=== PATIENT | male | born 1955 | race Caucasian/White ===

== ENCOUNTER 2017-01-27 06:48 | Day surgery (SDC) | payer MEDICARE, OTHER ==
[2017-01-27] MEDS ORDERED: Lactated Ringers 1,000 ML IV SCH (07:30)
[2017-01-27] MEDS ORDERED: Propofol 200 MG/20 ML SDV ONE ×2 (08:12→08:40)
[2017-01-27] MEDS ORDERED: fentaNYL 100 MCG/2 ML SDV ONE (08:12)
[2017-01-27] MEDS ORDERED: Midazolam 1 MG/ML 2 ML SDV ONE (08:12)
[2017-01-27 09:32] VITALS: BP 113/62
--- NOTE | 2017-01-27 11:32 | OR ---
DATE OF PROCEDURE: 01/27/2017 PREOPERATIVE DIAGNOSES: History of adenomatous colon polyps. POSTOPERATIVE DIAGNOSIS: Diverticulosis; three small colon polyps, sent to the laboratory as two specimens. PROCEDURE PERFORMED: Colonoscopy to the cecum with biopsy resection of polyp at 70 cm from anal verge and two polyps in the rectum. ANESTHESIA: IV anesthesia with monitored anesthesia care. INDICATION: This 61-year-old white male is referred for a colonoscopy because of a history of adenomatous colon polyps. His last colonoscopic exam was done he says more than five years ago. I counseled him for the procedure including risks and alternatives, and he gave his informed consent to proceed. DESCRIPTION OF PROCEDURE: The patient was placed in the left lateral decubitus position. IV anesthesia was administered by the Anesthesia Service. Time-out was held. A rectal exam was performed, which was unremarkable. The flexible video Olympus colonoscope was introduced through his anus, up his rectum, and out his colon all way to the cecum. En route, we saw multiple left-sided diverticula. There was no bleeding or inflammation associated with any of them. Once the cecum was reached, the scope was slowly withdrawn examining the mucosa throughout. We encountered a small polyp 70 cm from the anal verge which was removed with a couple of bites of the biopsy forceps. The scope was withdrawn further with no new additional lesions noted until we reached the rectum. Here , we saw two small polyps which were removed with the biopsy forceps and sent to the laboratory as one specimen. The scope was retroflexed in the rectum with the most distal rectum appearing unremarkable. The scope was straightened and removed. He tolerated the procedure well. Nagi Ricardo MD /[id number]
== END 2017-01-27 09:50 | disposition home or self-care (01) ==
LOC: JP.SDS 06:48
PROVIDERS: ATTEND Surgery
DX: Z12.11 Encounter for screening for malignant neoplasm of colon (principal); D12.6 Benign neoplasm of colon, unspecified; K62.1 Rectal polyp; Z86.010 Personal history of colon polyps; K57.30 Diverticulosis of large intestine without perforation or abscess without bleeding; G47.33 Obstructive sleep apnea (adult) (pediatric); Z88.8 Allergy status to other drugs, medicaments and biological substances; E11.9 Type 2 diabetes mellitus without complications
CPT/HCPCS: 45380; 88305; J2250; J2704; J3010; J7120

== ENCOUNTER 2018-04-25 13:09 | Emergency (ER) | payer MEDICARE, OTHER ==
[2018-04-25] MEDS ORDERED: Lidocaine 2% 20 ML MDV SUBCUT ONE (13:28)
[2018-04-25] MEDS ORDERED: Diphtheria,Pertussis(Acell),Tetanus Vaccine 0.5 ML SDV IM ONE (13:28)
--- NOTE | 2018-04-25 13:35 | EDM.PDOC ---
ED HPI GENERAL MEDICAL PROBLEM - General Chief Complaint: Laceration Stated Complaint: CUT ON END OF FINGER Time Seen by Provider: 04/25/18 13:25 Source of Information: Reports: Patient History Limitations: Reports: No Limitations - History of Present Illness INITIAL COMMENTS - FREE TEXT/NARRATIVE: 62 yo male was practicing with a cross bow and the string cut across the dorsal , distal L thumb. Here for eval and repair. Uncertain about tetanus status. 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: Other (see below) (none) Left Hand Pain Score (Numeric/FACES): 6 - Related Data Allergies Allergy/AdvReac Type Severity Reaction Status Date / Time cortisone Allergy Other Verified 01/27/17 07:20 smallpox vaccine,live Allergy Vomiting Verified 01/28/17 14:26 Home Meds: Home Meds Lisinopril [Prinivil] 20 mg PO DAILY 07/31/13 [History] Naproxen 500 mg PO BID 07/31/13 [History] Cholecalciferol (Vitamin D3) [Vitamin D3] 1,000 unit PO DAILY 01/22/17 [History] Clotrimazole [Lotrimin AF 1% Crm] 1 applic TOP ASDIRECTED 01/22/17 [History] Hydrochlorothiazide [Microzide] 12.5 mg PO DAILY 01/22/17 [History] Levothyroxine 75 mcg PO ACBREAKFAST 01/22/17 [History] Multivitamin with Minerals [Multiple Vitamin] 1 tab PO DAILY 01/22/17 [History] Oxymetazoline [Nasal Decongestant] 1 spray KJ DAILY 01/22/17 [History] Triamcinolone Acetonide [Nasacort AQ Keyes] 2 spray KJ DAILY 01/22/17 [History] amLODIPine [Norvasc] 5 mg PO DAILY 01/22/17 [History] traMADol [Ultram] 50 mg PO Q6H PRN 01/22/17 [History] Past Medical History HEENT History: Reports: Allergic Rhinitis Respiratory History: Reports: Sleep Apnea Musculoskeletal History: Reports: Arthritis, Back Pain, Chronic - Past Surgical History HEENT Surgical History: Reports: None Social & Family History - Caffeine Use Caffeine Use: Reports: Soda ED ROS GENERAL - Review of Systems Review Of Systems: See Below Constitutional: Reports: No Symptoms HEENT: Reports: No Symptoms Respiratory: Reports: No Symptoms Cardiovascular: Reports: No Symptoms Endocrine: Reports: No Symptoms GI/Abdominal: Reports: No Symptoms : Reports: No Symptoms Musculoskeletal: Reports: No Symptoms Skin: Reports: Wound (L thumb) Neurological: Reports: No Symptoms ED EXAM, SKIN/RASH Exam: See Below Exam Limited By: No Limitations General Appearance: Alert, WD/WN, No Apparent Distress, Obese Extremities: Normal Inspection, Normal Range of Motion Neurological: Alert, Oriented, CN II-XII Intact, Normal Cognition, No Motor/ Sensory Deficits Psychiatric: Normal Affect, Normal Mood Skin: Warm, Dry, Normal Color, No Rash, Wound/Incision (distal, dorsal thumb laceration) Location, Skin: Upper Extremity, Left Characteristics: Linear Associated features: Tenderness ED SKIN PROCEDURES - Laceration/Wound Repair Left Hand Lac/Wound length In cm: 1.7 Appearance: Subcutaneous, Linear, Clean Distal NVT: Neuro & Vascular Intact Anesthetic Type: Digital Local Anesthesia - Lidocaine (Xylocaine): 2% Plain Local Anesthetic Volume: Other (8 ml) Skin Prep: Isopropyl Alcohol (Alcohol) Exploration/Debridement/Repair: Wound Explored, Minimal Debridement Closed with: Sutures Suture Size: other (5-0 Ethilon) # of Sutures: 3 Suture Type: Nylon, Interrupted, Simple Drain Placement: No Sterile Dressing Applied: Nurse Tetanus Status Addressed: Yes Complications: No Course - Vital Signs Last Recorded V/S: Last Vital Signs Temp 35.7 C 04/25/18 13:30 Pulse 82 04/25/18 13:30 Resp 18 04/25/18 13:30 BP 128/65 04/25/18 13:30 Pulse Ox 95 04/25/18 13:30 - Orders/Labs/Meds Orders: Active Orders 24 hr Category Date Time Status Vaccines to be Administered [RC] PER UNIT ROUTINE Care 04/25/18 13:28 Active Fingers Thumb Lt FA [CR] Stat Exams 04/25/18 13:30 Ordered Meds: Medications Discontinued Medications Generic Name Dose Route Start Last Admin Trade Name Freq PRN Reason Stop Dose Admin Diphtheria/Tetanus/Acell Pertussis 0.5 ml 04/25/18 13:28 04/25/18 13:38 Adacel IM 04/25/18 13:29 0.5 ml .ONCE ONE Administration Lidocaine HCl 10 ml 04/25/18 13:28 04/25/18 13:37 Xylocaine 2% SUBCUT 04/25/18 13:29 10 ml ONETIME ONE Administration - Radiology Interpretation Free Text/Narrative:: L thumb X-ray-tuft fx Departure - Departure Time of Disposition: 14:20 Disposition: Home, Self-Care 01 Condition: Good Clinical Impression: Open fracture of tuft of distal phalanx of left thumb - Discharge Information *PRESCRIPTION DRUG MONITORING PROGRAM REVIEWED*: No *COPY OF PRESCRIPTION DRUG MONITORING REPORT IN PATIENT SANTY: No Instructions: Laceration Care, Adult, [id number] Referrals: Boby Nichols MD [Primary Care Provider] - Forms: ED Department Discharge Additional Instructions: Clean wound twice daily with 1/2 water and 1/2 peroxide. Dry. Apply Bacitracin ointment and a new dressing. Take cephalexin as directed until gone. Take Fountain as needed for pain not relieved with ibuprofen and acetaminophen alone. Wound check in the clinic in 2-3 days. Stitches out in 10days. Keep wound clean and elevated. - My Orders Last 24 Hours: My Active Orders 04/25/18 13:28 Vaccines to be Administered [RC] PER UNIT ROUTINE 04/25/18 13:30 Fingers Thumb Lt FA [CR] Stat - Assessment/Plan Last 24 Hours: My Active Orders 04/25/18 13:28 Vaccines to be Administered [RC] PER UNIT ROUTINE 04/25/18 13:30 Fingers Thumb Lt FA [CR] Stat
[2018-04-25 13:41] VITALS: BP 128/65
[2018-04-25] MEDS ORDERED: Cephalexin 250 MG Cap PO ONE (13:53)
--- NOTE | 2018-04-25 14:04 | CR ---
Fingers Thumb Lt FA CLINICAL HISTORY: Laceration FINDINGS: There is soft tissue deformity at the tip of the thumb. Patient is a tuft fracture IMPRESSION: Soft tissue laceration with tuft fracture of the distal phalanx
[2018-04-25] MEDS ORDERED: Bacitracin Oint 1 GM U/D Packet TOP ONE (14:10)
== END 2018-04-25 14:32 | disposition home or self-care (01) ==
LOC: JP.ED 13:09
DX: S62.522B Displaced fracture of distal phalanx of left thumb, initial encounter for open fracture (principal); S61.012A Laceration without foreign body of left thumb without damage to nail, initial encounter; Z88.8 Allergy status to other drugs, medicaments and biological substances; Z88.7 Allergy status to serum and vaccine; Z79.899 Other long term (current) drug therapy; Z23 Encounter for immunization; W22.8XXA Striking against or struck by other objects, initial encounter
CPT/HCPCS: 12001; 73140; 90471; 90715; 99283; A9270

== ENCOUNTER 2019-06-12 07:13 | Day surgery (SDC) | payer OTHER, MEDICARE ==
[~2019-06-12 07:13] MED LIST: Povidone-Iodine 10% Soln 118.25 ML Bottle ONE
[2019-06-12] MEDS ORDERED: ceFAZolin 2 GM in Premix Bag 1 BAG IV ONE (08:00)
[2019-06-12] MEDS ORDERED: Lactated Ringers 1,000 ML IV SCH (08:00)
[2019-06-12] MEDS: Nozin Nasal Sanitizer NASBOTH SCH ×2 (08:14→21:48)
[2019-06-12] MEDS ORDERED: fentaNYL 100 MCG/2 ML SDV ONE (09:53)
[2019-06-12] MEDS ORDERED: Propofol 200 MG/20 ML SDV ONE ×4 (09:54→10:58)
[2019-06-12] MEDS ORDERED: Midazolam 1 MG/ML 2 ML SDV ONE ×2 (09:54→10:39)
[2019-06-12] MEDS ORDERED: Lactated Ringers 1,000 ML ONE (11:03)
[2019-06-12] MEDS ORDERED: Acetaminophen/HYDROcodone 325-5 MG Tab PO PRN (11:17)
[2019-06-12] MEDS ORDERED: Acetaminophen 325 MG Tab PO PRN (11:17)
[2019-06-12] MEDS ORDERED: Magnesium Hydroxide 400 MG/5 ML Susp 30 ML Cup PO PRN (11:17)
[2019-06-12] MEDS ORDERED: ceFAZolin 1 GM in Sodium Chloride 0.9% 50 ML IV SCH (11:30)
[2019-06-12] MEDS: Acetaminophen/oxyCODONE 325-5 MG Tab PO PRN ×2 (12:22→17:26)
[2019-06-12] MEDS ORDERED: Ondansetron 4 MG/2 ML SDV IVPUSH STA (13:09)
[2019-06-12] MEDS: Morphine 2 MG/ML Syringe IVPUSH PRN ×2 (13:18→14:20)
--- NOTE | 2019-06-12 13:44 | CR ---
Knee 1V or 2V Rt CLINICAL HISTORY: Postop FINDINGS: Patient has a medial hemiarthroplasty. Components appear well seated. There is some persistent intra-articular air. Some osteophytic change in the fellow femoral joint. Impression: Patient is status post recent medial hemiarthroplasty
[2019-06-12] MEDS: Ketorolac 30 MG/ML SDV IVPUSH PRN ×2 (15:59→21:47)
[2019-06-12] MEDS: ceFAZolin 1 GM in Premix Bag 1 BAG IV SCH (16:00)
[2019-06-12] MEDS: metFORMIN 500 MG Tab PO SCH (16:04)
[2019-06-12] MEDS: Docusate Sodium 100 MG Cap PO SCH ×2 (19:28→21:48)
[2019-06-12] MEDS: Sodium Chloride 0.9% 1,000 ML IV SCH (19:29)
[2019-06-12] MEDS ORDERED: Non-Formulary Medication 1 Each (Metformin Hcl [Metformin Hcl] 1,000 MG) PO SCH (21:00)
[2019-06-12] MEDS: Ondansetron 4 MG/2 ML SDV IVPUSH PRN (21:42)
[2019-06-13] MEDS: ceFAZolin 1 GM in Premix Bag 1 BAG IV SCH ×2 (00:27→08:24)
[2019-06-13] MEDS: Sodium Chloride 0.9% 1,000 ML IV SCH ×2 (03:12→11:48)
[2019-06-13] MEDS: Ketorolac 30 MG/ML SDV IVPUSH PRN ×2 (03:41→10:12)
[2019-06-13] MEDS: Ondansetron 4 MG/2 ML SDV IVPUSH PRN ×2 (04:52→13:09)
[2019-06-13] MEDS ORDERED: Levothyroxine 100 MCG Tab PO SCH (07:30)
[2019-06-13] MEDS: Acetaminophen/oxyCODONE 325-5 MG Tab PO PRN (08:37)
[2019-06-13] MEDS: metFORMIN 500 MG Tab PO SCH ×2 (08:45→16:55)
[2019-06-13] MEDS: Docusate Sodium 100 MG Cap PO SCH (08:45)
[2019-06-13] MEDS: Nozin Nasal Sanitizer NASBOTH SCH (08:48)
[2019-06-13] MEDS ORDERED: atorvaSTATin 10 MG Tab PO SCH (09:00)
[2019-06-13] MEDS ORDERED: Hydrochlorothiazide 12.5 MG Cap PO SCH (09:00)
[2019-06-13] MEDS ORDERED: TRIAMCINOLONE ACETONIDE NS SCH (09:00)
[2019-06-13] MEDS ORDERED: NASACORT NAS SCH (09:00)
[2019-06-13] MEDS ORDERED: amLODIPine 5 MG Tab PO SCH (09:00)
[2019-06-13] MEDS ORDERED: Lisinopril 20 MG Tab PO SCH (09:00)
[2019-06-13] MEDS ORDERED: glipiZIDE 5 MG Tab PO SCH (09:00)
[2019-06-13] MEDS: Morphine 2 MG/ML Syringe IVPUSH PRN (09:20)
[2019-06-13] MEDS: Acetaminophen/HYDROcodone 325-10 MG Tab PO PRN ×2 (13:05→16:27)
[2019-06-13 14:27] VITALS: BP 150/68; PULSE 68
--- NOTE | 2019-06-16 15:07 | OR ---
DATE OF PROCEDURE: 06/12/2019 SURGEON: Richi Lopez MD PREOPERATIVE DIAGNOSIS: Osteoarthritis, medial compartment, right knee. POSTOPERATIVE DIAGNOSIS: Osteoarthritis, medial compartment, right knee. PROCEDURE: Right medial unicompartmental arthroplasty using the [employer] ZUK components. ANESTHESIA: Spinal with sedation. INDICATIONS: Giovani is a 63-year-old gentleman with history of progressive pain in his right knee over the past couple of years. He has failed conservative treatment. X-rays reveal medial joint space collapse with preservation of the lateral and patellofemoral joints. He now presents for medial unicompartmental arthroplasty. Risks, benefits, and potential complications of the procedure were discussed. DESCRIPTION OF PROCEDURE: After adequate anesthesia was obtained, the patient was placed supine with a tourniquet about the right upper thigh. Right thigh was prepped and draped in a sterile fashion. Leg was exsanguinated and tourniquet inflated to 300 mmHg pressure. Anterior incision was made just slightly medial of midline over the knee and carried down through the subcutaneous tissues. Medial parapatellar arthrotomy was performed from the tibial tubercle to the insertion of the VMO without violating the VMO. Anterior horn of the medial meniscus was excised. Significant degenerative change noted of the medial compartment. Patellofemoral articular cartilage was smooth without defects. Oscillating saw was used to remove the anterior lip of the tibial plateau. The leg was extended and extramedullary alignment jig was placed. This was secured to the femur and the tibia. Distal femoral resection was then made. This portion of the jig was removed, the knee was flexed, and the tibial plateau was then cut. Cut portion was removed and the medial meniscus was then excised. Femoral component was sized with a cutting jig. Cutting jig was secured with pins, and the posterior and chamfer cuts were then made along with the holes for the pegs. Trial component was placed with excellent fit. Attention was turned to the tibia. Tibia was sized. Appropriate tibial trial tray was secured with a pin and holes were then drilled for fixation pegs. Knee was trialed with the 10 mm spacer appearing to provide best balance in flexion and extension with approximately 2 mm of gap. Trials were removed. The knee was then thoroughly irrigated with pulse lavage. Bone surfaces were dried. Components were cemented in place and the excess cement was removed. The knee was held in full extension as the cement cured with a trial spacer. Trial was removed. Knee was irrigated and the final polyethylene was snapped into position. Knee was again taken through range of motion and showed good balance in flexion and extension with approximately 2 mm gap. Knee was irrigated final time and then closed with 0 suture in the capsule, 2-0 Vicryl and a running 3-0 Monocryl on the skin. Steri- Strips were applied. Sterile dressing was then placed. The patient tolerated the procedure well. There were no complications. He was taken from the operating room in a stable condition. Richi Lopez MD /[id number]
== END 2019-06-13 17:40 | disposition home or self-care (01) ==
LOC: JP.SDS 07:13 → JP.MS 12:15 → JP.SDS 06-13 17:40
PROVIDERS: ATTEND Specialist
DX: M17.11 Unilateral primary osteoarthritis, right knee (principal); I10 Essential (primary) hypertension; E11.9 Type 2 diabetes mellitus without complications; E03.9 Hypothyroidism, unspecified; E66.01 Morbid (severe) obesity due to excess calories; F32.9 Major depressive disorder, single episode, unspecified; G47.33 Obstructive sleep apnea (adult) (pediatric); Z88.7 Allergy status to serum and vaccine; Z88.8 Allergy status to other drugs, medicaments and biological substances; Z68.43 Body mass index [BMI] 50.0-59.9, adult; Z99.89 Dependence on other enabling machines and devices; Z79.84 Long term (current) use of oral hypoglycemic drugs; Z79.899 Other long term (current) drug therapy
CPT/HCPCS: 27446; 73560; 82962; 97110; 97162; 97530; 97535; A9270; C1713; C1776; J0690; J1885; J2250; J2270; J2405; J2704; J3010; J7030; J7120

== ENCOUNTER 2021-02-06 13:04 | Emergency (ER) | payer MEDICARE, OTHER ==
[2021-02-06 13:35] VITALS: BP 140/79; PULSE 87
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
== END 2021-02-06 14:06 | disposition home or self-care (01) ==
LOC: JP.ED 13:04
DX: S00.01XA Abrasion of scalp, initial encounter (principal); E78.00 Pure hypercholesterolemia, unspecified; I10 Essential (primary) hypertension; E11.9 Type 2 diabetes mellitus without complications; E03.9 Hypothyroidism, unspecified; E66.9 Obesity, unspecified; Z68.30 Body mass index [BMI] 30.0-30.9, adult; Z88.8 Allergy status to other drugs, medicaments and biological substances; Z88.7 Allergy status to serum and vaccine; W01.0XXA Fall on same level from slipping, tripping and stumbling without subsequent striking against object, initial encounter
CPT/HCPCS: 99283

== ENCOUNTER 2022-02-17 06:08 | Day surgery (SDC) | payer MEDICARE ==
[2022-02-17] MEDS ORDERED: Lactated Ringers 1,000 ML IV SCH (06:30)
[2022-02-17] MEDS ORDERED: Propofol 200 MG/20 ML SDV ONE ×2 (06:57→08:04)
[2022-02-17] MEDS ORDERED: Midazolam 1 MG/ML 2 ML SDV ONE (06:57)
[2022-02-17] MEDS ORDERED: fentaNYL 100 MCG/2 ML SDV ONE (06:57)
[2022-02-17 09:09] VITALS: BP 128/80; PULSE 75
== END 2022-02-17 09:10 | disposition home or self-care (01) ==
LOC: JP.SDS 06:08
PROVIDERS: ATTEND Family Medicine
DX: Z12.11 Encounter for screening for malignant neoplasm of colon (principal); K57.30 Diverticulosis of large intestine without perforation or abscess without bleeding; E11.9 Type 2 diabetes mellitus without complications; I10 Essential (primary) hypertension; E66.01 Morbid (severe) obesity due to excess calories; F32.A Depression, unspecified; G47.33 Obstructive sleep apnea (adult) (pediatric); Z86.010 Personal history of colon polyps; Z98.890 Other specified postprocedural states; Z68.43 Body mass index [BMI] 50.0-59.9, adult
CPT/HCPCS: J2250; J2704; J3010; J7120

== ENCOUNTER 2024-12-25 08:45 | Day surgery (SDC) | payer MEDICARE ==
[2024-12-25 09:07] LABS: HEMOGLOBIN 12.9 g/dL (12.9-16.9); MEAN CORPUSCULAR HEMOGLOBIN 31.2 pg (31.6-35.5); MEAN CORPUSCULAR HGB CONC 33.1 g/dL (31.6-35.5); MEAN CORPUSCULAR VOLUME 94.2 fL (81.4-99.0); RED BLOOD CELL COUNT 4.14 M/uL (4.14-5.76); WHITE BLOOD CELL COUNT,WBC 10.1 K/uL (3.2-11.0)
[2024-12-25] MEDS: Nozin Nasal Sanitizer NASBOTH SCH (09:25)
[2024-12-25 09:30] LABS: A/G RATIO 0.9 (1.2-2.2); ALANINE AMINOTRANSFERASE,ALT 50 U/L (12-78); ALBUMIN 3.8 g/dL (3.4-5.0); ALKALINE PHOSPHATASE 61 U/L (46-116); ASPARTATE AMNIOTRANSFERASE,AST 31 U/L (15-37); BILIRUBIN TOTAL 0.4 mg/dL (0.2-1.0); BLOOD UREA NITROGEN,BUN 21 mg/dL (7-18); CALCIUM 9.4 mg/dL (8.5-10.1); CARBON DIOXIDE,CO2 27 mmol/L (21-32); CHLORIDE,CL 100 mmol/L (100-108); CREATININE 1.2 mg/dL (0.8-1.3); EST CRCL DRUG DOSING (CG) 65.56 mL/min; ESTIMATED GFR 66 mL/min (>60); GLUCOSE RANDOM 156 mg/dL (74-106); POTASSIUM,K 3.9 mmol/L (3.6-5.2); PROTEIN TOTAL,TP 8.1 g/dL (6.4-8.2); SODIUM,NA 137 mmol/L (140-148)
[2024-12-25 09:31] LABS: ANION GAP 13.9 mmol/L (5.0-14.0)
[2024-12-25] MEDS ORDERED: fentaNYL 100 MCG/2 ML SDV ONE (09:39)
[2024-12-25] MEDS ORDERED: Propofol 200 MG/20 ML SDV ONE (09:39)
[2024-12-25] MEDS ORDERED: Midazolam 1 MG/ML 2 ML SDV ONE ×2 (09:39→11:05)
[2024-12-25] MEDS: Lactated Ringers 1,000 ML IV SCH (09:41)
[2024-12-25] MEDS ORDERED: LORazepam 1 MG Tab PO PRN (10:05)
[2024-12-25] MEDS ORDERED: Docusate Sodium 100 MG Cap PO PRN (10:07)
[2024-12-25] MEDS ORDERED: Morphine 2 MG/ML SYRINGE IVPUSH PRN (10:07)
[2024-12-25] MEDS ORDERED: Ondansetron 4 MG/2 ML SDV IVPUSH PRN (10:07)
[2024-12-25] MEDS ORDERED: Magnesium Hydroxide 400 MG/5 ML Susp 30 ML Cup PO PRN (10:07)
[2024-12-25] MEDS ORDERED: oxyCODONE 5 MG Tab PO PRN ×2 (10:07)
[2024-12-25] MEDS ORDERED: Clotrimazole 1% Crm 30 GM Tube TOP PRN (10:15)
[2024-12-25] MEDS: ceFAZolin 2 GM in Premix Bag 1 BAG IV ONE (10:30)
[2024-12-25] MEDS ORDERED: Ondansetron 4 MG/2 ML SDV ONE (10:47)
[2024-12-25] MEDS ORDERED: droPERidol 5 MG/2 ML SDV ONE (10:55)
[2024-12-25] MEDS ORDERED: Scopalamine 1mg/3day Transdermal Patch ONE (11:16)
[2024-12-25] MEDS: Bupivacaine 0.5% 50 ML MDV ONE (11:17)
[2024-12-25] MEDS ORDERED: Labetalol 20 MG/4 ML Syringe ONE (11:27)
[2024-12-25] MEDS: Oxymetazoline 0.05% Nasal Spray 30 ML Bottle NASBOTH PRN (14:33)
[2024-12-25] MEDS: Acetaminophen 325 MG Tab PO SCH (14:35)
[2024-12-25] MEDS: Ketorolac 30 MG/ML SDV IVPUSH PRN (15:23)
[2024-12-25] MEDS: Sodium Chloride 0.9% 1,000 ML IV SCH (16:39)
[2024-12-25 16:46] VITALS: BP 144/71; PULSE 68
[2024-12-25] MEDS: ceFAZolin 2 GM in Premix Bag 1 BAG IV SCH (16:50)
[2024-12-25] MEDS: glipiZIDE 5 MG Tab PO SCH (16:51)
[2024-12-25] MEDS: metFORMIN 500 MG Tab PO SCH (16:54)
[2024-12-25] MEDS ORDERED: Nozin Nasal Sanitizer NASBOTH SCH (21:00)
[2024-12-25] MEDS ORDERED: Insulin Glargine,Human Rec. Analog 100 Units/ML 3 ML Pen SUBCUT SCH (21:00)
[2024-12-26] MEDS ORDERED: Levothyroxine 100 MCG Tab PO SCH (07:30)
[2024-12-26] MEDS ORDERED: Levothyroxine 25 MCG Tab PO SCH (07:30)
[2024-12-26] MEDS ORDERED: Multivitamins with Iron/Calcium/Folic Acid/Minerals Tab PO SCH (09:00)
[2024-12-26] MEDS ORDERED: Fluticasone NASAL Spray 16 GM Bottle NASBOTH SCH (09:00)
[2024-12-26] MEDS ORDERED: Aspirin 325 MG Tab.EC PO SCH (09:00)
[2024-12-26] MEDS ORDERED: amLODIPine 5 MG Tab PO SCH (09:00)
[2024-12-26] MEDS ORDERED: Magnesium Oxide 400 MG Tab PO SCH (09:00)
[2024-12-26] MEDS ORDERED: Spironolactone 25 MG Tab PO SCH (09:00)
[2024-12-26] MEDS ORDERED: Lisinopril 20 MG Tab PO SCH (09:00)
[2024-12-26] MEDS ORDERED: buPROPion 150 MG Tab.ER PO SCH (09:00)
[2024-12-26] MEDS ORDERED: Citalopram 20 MG Tab PO SCH (09:00)
[2024-12-26] MEDS ORDERED: Ezetimibe 10 MG Tab PO SCH (09:00)
[2024-12-26] MEDS ORDERED: Cholecalciferol (Vitamin D3) 25 MCG Tab PO SCH (09:00)
[2024-12-26] MEDS ORDERED: Hydrochlorothiazide 12.5 MG Cap PO SCH (09:00)
[2024-12-26] MEDS ORDERED: atorvaSTATin 10 MG Tab PO SCH (09:00)
== END 2024-12-25 18:10 | disposition home or self-care (01) ==
LOC: JP.SDS 08:45 → JP.MS 10:07 → JP.SDS 18:10
PROVIDERS: ATTEND Specialist
DX: M17.12 Unilateral primary osteoarthritis, left knee (principal); I11.0 Hypertensive heart disease with heart failure; I50.9 Heart failure, unspecified; E66.9 Obesity, unspecified; E11.9 Type 2 diabetes mellitus without complications
CPT/HCPCS: 01400; 27446; 36415; 73560; 80053; 82947; 85027; A9270; C1713; C1776; J0665; J0690; J1790; J1815; J1885; J1920; J2250; J2405; J2704; J3010; J7030; J7120